=== PATIENT | female | born 1945 | race Two or more races ===

== ENCOUNTER 2020-09-21 11:42 | Emergency (ER) | payer MEDICARE, MEDICAID ==
[~2020-09-21] VITALS: Ht 157.5 cm; Wt 74.8 kg
[2020-09-21] MEDS ORDERED: ACETAMINOPHEN ES 500 MG TABLET ONE (12:28)
[2020-09-21] MEDS ORDERED: IBUPROFEN 600 MG TABLET ONE (12:29)
[2020-09-21] MEDS ORDERED: IBUPROFEN 600 MG TABLET PO ONE (12:30)
[2020-09-21] MEDS ORDERED: ACETAMINOPHEN ES 500 MG TABLET PO ONE (12:30)
[2020-09-21 12:33] LABS: BASOPHILS % (AUTO) 0.4 % (0.0-2.0); EOSINOPHILS % (AUTO) 0.1 % (0.0-6.0); HEMATOCRIT 43 % (33-45); HEMOGLOBIN 14.1 g/dL (11.5-14.8); LYMPHOCYTES # (AUTO) 0.8 K/uL (0.8-4.8); LYMPHOCYTES % (AUTO) 9.7 % (20.0-44.0); MEAN CORPUSCULAR HGB CONC 33 g/dl (31.0-36.0); MEAN CORPUSCULAR VOLUME 88 fL (82-100); MONOCYTES # (AUTO) 0.3 K/uL (0.1-1.30); MONOCYTES % (AUTO) 3.6 % (2.0-12.0); NEUTROPHILS # (AUTO) 6.8 K/uL (1.8-8.9); NEUTROPHILS % (AUTO) 86.2 % (43.0-81.0); PLATELET COUNT (AUTO) 257 K/uL (150-450); RED BLOOD CELL COUNT(AUTO) 4.86 MIL/uL (4.0-5.2); WHITE BLOOD COUNT (AUTO) 7.9 K/uL (4.3-11.0)
[2020-09-21 12:35] LABS: CARBON DIOXIDE 27 mmol/L (21-32); CHLORIDE 102 mmol/L (98-107); CREATININE 0.6 mg/dL (0.6-1.3); GLUCOSE 139 mg/dL (74-106); POTASSIUM 3.8 mmol/L (3.5-5.1); SODIUM SERUM 140 mmol/L (136-145); UREA NITROGEN, BLOOD 12 mg/dL (7-18)
[2020-09-21 12:41] LABS: ALANINE AMINOTRANSFERASE 22 U/L (12-78); ALBUMIN 3.7 g/dL (3.4-5.0); ALKALINE PHOSPHATASE 69 U/L (46-116); ASPARTATE AMINOTRANSFERASE 23 U/L (15-37); BILIRUBIN,DIRECT 0.1 mg/dL (0.0-0.2); BILIRUBIN,TOTAL 0.6 mg/dL (0.2-1.0); TOTAL PROTEIN, SERUM 7.6 g/dL (6.4-8.2)
--- NOTE | 2020-09-21 13:00 | NUR ---
Reclining in [facility] NO obvious distress. Family at bedside both aware of plan of care
[2020-09-21] MEDS ORDERED: CT SWABBABLE VALVE TRANS SET 1 EA INFUS.SET MC ONE (13:31)
[2020-09-21] MEDS ORDERED: IV NS 0.9% 250 ML IV ONE (13:31)
[2020-09-21] MEDS ORDERED: IOHEXOL-350 100 ML VIAL IV ONE (13:31)
--- NOTE | 2020-09-21 15:10 | NUR ---
Sleeping NO obvious distress awaiting MD re-evaluation and disposition
[2020-09-21 17:50] VITALS: BP 149/70
--- NOTE | 2020-09-21 17:50 | NUR ---
Patient discharged to home in stable condition. Written and verbal after care instructions given. Patient verbalizes understanding of instruction.
== END 2020-09-21 17:51 | disposition home or self-care (01) ==
LOC: ER 11:50
DX: I10 Essential (primary) hypertension (principal); R07.89 Other chest pain; Z90.89 Acquired absence of other organs
CPT/HCPCS: 36415; 71045; 71275; 80048; 80076; 84484 ×2; 85025; 85378; 93005 ×4; 99285; J7050; Q9967